=== PATIENT | male | born 1970 | race Caucasian/White ===

== ENCOUNTER → 2018-05-31 08:41 | Outpatient (CLI) | payer OTHER ==
[2015-03-18 12:58] VITALS: BMI 25.8
[~2018-05-31 08:41] MED LIST: ANUSOL-HC25 MG RC; DULCOLAX10 MG/SUPP RC; FLAGYL500 MG PO; HYDROCODON-ACE1 EAC7 PO; INVANZ 1 GM/NS 11 G1 IV; MIRALAX17 GM PO; NORCO-10 PO; PENTASA500 MG PO
[2018-05-31 10:06] LABS: ALBUMIN 3.3 g/dL (3.4-5.0); ALKALINE PHOSPHATASE 69 U/L (46-116); ALT (SGPT) 16 U/L (10-68); BILIRUBIN - TOTAL 0.24 mg/dL (0.2-1.3); CALC OSMOLALITY 283 mosm/kg (275-300); CALCIUM 9.1 mg/dL (8.5-10.1); CARBON DIOXIDE 33.7 mmol/L (21.0-32.0); CHLORIDE - SERUM 104 mmol/L (98-107); CREATININE - SERUM 0.9 mg/dL (0.6-1.3); GLUCOSE 108 mg/dL (74-106); POTASSIUM - SERUM 4.3 mmol/L (3.5-5.1); PROTEIN - SERUM 7.2 g/dL (6.4-8.2); SODIUM 143 mmol/L (136-145); UREA NITROGEN 8 mg/dL (7-18); eGFR NON AFRICAN AMERICAN > 90 mL/min (90-120)
[2018-05-31 10:31] LABS: ERYTHROCYTE SEDIMENTATION RATE 25 mm/hr (0-15)
[2018-05-31 10:34] LABS: BASOPHILS 0.1 % (0-2); EOSINOPHILS 0.4 % (0-7); HEMATOCRIT 42.6 % (42.0-54.0); HEMOGLOBIN 13.9 g/dL (13.5-17.5); IMMATURE GRANULOCYTES 0.3 % (0-5); LYMPHOCYTES 11.3 % (15-50); MCH 28.1 pg (26.0-34.0); MCHC 32.6 g/dL (31.0-37.0); MCV 86.2 fL (80.0-100.0); MEAN PLATELET VOLUME 9.9 fL (7.4-10.4); MONOCYTES 8.7 % (2-11); NEUTROPHILS 79.2 % (40-80); RBC 4.94 10x6/uL (4.20-6.10); RDW 14.2 % (11.5-14.5)
[2018-05-31 10:46] LABS: PLATELET COUNT 251 10x3/uL (130-400)
== END | disposition home or self-care (01) ==
LOC: D.CT 08:41
PROVIDERS: Internal Medicine Gastroenterology
DX: R19.4 Change in bowel habit (principal); R10.32 Left lower quadrant pain; R10.31 Right lower quadrant pain; R63.4 Abnormal weight loss; K50.90 Crohn's disease, unspecified, without complications

== ENCOUNTER → 2018-06-20 07:54 | Outpatient (CLI) | payer OTHER ==
[2015-03-18 12:58] VITALS: BMI 25.8
== END | disposition home or self-care (01) ==
LOC: D.RAD 07:54
DX: K50.90 Crohn's disease, unspecified, without complications (principal); R10.9 Unspecified abdominal pain; R59.9 Enlarged lymph nodes, unspecified; R93.8 Abnormal findings on diagnostic imaging of other specified body structures

== ENCOUNTER → 2018-07-08 08:00 | Outpatient (CLI) | payer OTHER ==
[2015-03-18 12:58] VITALS: BMI 25.8
== END | disposition home or self-care (01) ==
LOC: D.CT 08:00
DX: R10.9 Unspecified abdominal pain (principal); R59.9 Enlarged lymph nodes, unspecified; K50.90 Crohn's disease, unspecified, without complications

== ENCOUNTER 2018-07-25 07:11 | Inpatient (IN) | payer OTHER ==
[2018-07-24 13:54] LABS: BASOPHILS 0.2 % (0-2); EOSINOPHILS 0.4 % (0-7); HEMATOCRIT 40.5 % (42.0-54.0); HEMOGLOBIN 13.2 g/dL (13.5-17.5); IMMATURE GRANULOCYTES 0.2 % (0-5); LYMPHOCYTES 18.1 % (15-50); MCH 28.8 pg (26.0-34.0); MCHC 32.6 g/dL (31.0-37.0); MCV 88.4 fL (80.0-100.0); MEAN PLATELET VOLUME 9.3 fL (7.4-10.4); MONOCYTES 9.2 % (2-11); NEUTROPHILS 71.9 % (40-80); PLATELET COUNT 210 10x3/uL (130-400); RBC 4.58 10x6/uL (4.20-6.10); RDW 13.8 % (11.5-14.5)
[2018-07-24 14:10] LABS: CALC OSMOLALITY 282 mosm/kg (275-300); CALCIUM 8.6 mg/dL (8.5-10.1); CARBON DIOXIDE 32.6 mmol/L (21.0-32.0); CHLORIDE - SERUM 103 mmol/L (98-107); GLUCOSE 103 mg/dL (74-106); SODIUM 143 mmol/L (136-145); UREA NITROGEN 8 mg/dL (7-18); eGFR NON AFRICAN AMERICAN 85 mL/min (90-120)
[~2018-07-25] VITALS: Ht 182.9 cm; Wt 78.0 kg
--- NOTE | ~2018-07-25 | OP ---
PATIENT NAME: SHREE MESSER MEDICAL RECORD: [id number] :74 LOCATION:D.MS [id number] ADMISSION DATE:07/25/18 SURGEON: DAVY ODELL MD DATE OF OPERATION: 07/25/2018 PREOPERATIVE DIAGNOSES: 1. Crohn disease. 2. Partial small-bowel obstruction. POSTOPERATIVE DIAGNOSES: 1. Crohn disease. 2. Partial small-bowel obstruction. PROCEDURE: 1. Exploratory laparotomy. 2. Lysis of adhesions. 3. Small bowel resection times 2. SURGEON: Davy Odell MD AGRIBUSINESS PROFESSOR: Amy Franco APRN REPORT OF PROCEDURE: The patient's abdomen was prepped and draped in sterile fashion. A cutdown was made in the midline around the umbilicus. Electrocautery was used to dissect through the subcutaneous tissue into the abdominal cavity. Once we entered, the patient was noted to have markedly distended small bowel consistent with a partial small-bowel obstruction. There was a lot of inflammatory adhesions present in the mesentery and to some of the distal small bowel. There was no sign of any purulence or abscess cavities. The patient's small bowel was tediously dissected free from the surrounding tissues. There was noted be a lot of inflammatory changes and also appeared to be one area of possible fistulous tract coming from a portion of the mid ileum. As we came through the fistulous tract, we did enter the small bowel lumen. This area was marked and held for repair later. The injury to the bowel was on the mesenteric side. As we got down towards the right lower quadrant, we noted there was some significant inflammatory adhesions present to the posterior abdominal wall and this was causing stricturing of the bowel. We eventually were able to free up this section of bowel. The bowel distal to this was inflamed, but was not dilated. We eventually performed a resection of this section of dilated swollen bowel, which appeared to be fairly significantly strictured. The bowel was transected with the 75-blue load JANET stapler. The mesentery was taken down with sequential clamp and tie technique. We then made enterotomies on the afferent and efferent limbs of the small bowel and then performed a ggyu-vi-wkqh anastomosis with a 75 blue load JANET stapler. The enterotomies were stapled off using a 60 blue load TA stapler and then we oversewed all the suture lines using Lemberted 3-0 silks. The previous enterotomy site was inspected and I did not feel that I could safely just perform a local repair, so we resected approximately 2 cm length section of small bowel around this spot using again a 75 blue load JANET stapler and taking down the mesentery with sequential clamp and tie technique with 3-0 silks. We made enterotomies on the 2 limbs of bowel and performed a ndlr-ha-muvz anastomosis with the 75 blue load JANET stapler. The enterotomies were closed with a 60 blue load TA stapler and again we oversewed all staple lines using Lemberted 3-0 silks. There was no sign of any enteric spillage during this procedure. The remainder of the colon and small bowel appeared to be normal OPERATIVE REPORT [id number] SHREE MESSER except for the areas, which were mildly inflamed. There were no signs of any other strictures or lesions present. There was a firm nodule at the base of the mesentery near the main stricture. I felt this was likely a large lymph node. I went ahead and resected this piece of tissue, which appeared more fatty than anything in nature and this was sent off for permanent specimen. The abdomen was then irrigated out thoroughly with normal saline and care was taken to assure there was no sign of any surgical bleeding. At this point, the midline fascia was closed with running #1 loop PDS times 2 and the skin was closed with cory. COMPLICATIONS: None. CONDITION: Stable. ANESTHESIA: General endotracheal. BLOOD LOSS: 400 mL. TRANSINT:[id number] Voice Confirmation ID: [id number] DOCUMENT ID: [id number] DAVY ODELL MD at 1714 CC: RIAN EDMOND MD and PRIYA ACO MD [id number] DICTATION DATE: 07/25/18 1212 CONSERVATION SCIENCE OFFICER: 07/25/18 1221 DIS IN 07/31/18 [place] [id number] [place] [id number]
[~2018-07-25 07:11] MED LIST changes: -NORCO-10 PO
[2018-07-25 07:47] VITALS: BP 124/84; BMI 23.5
[2018-07-25 13:33] VITALS: BP 121/77
[2018-07-25 14:12] VITALS: BP 121/77; BMI 23.3
[2018-07-25 16:24] VITALS: BP 121/71
[2018-07-25 20:00] VITALS: BP 131/76
[2018-07-26] VITALS (8 sets, daily range): BP systolic 101–134; BP diastolic 70–85; Ht 182.9 cm; Wt 78.0 kg
[2018-07-26 05:22] LABS: BASOPHILS 0.1 % (0-2); EOSINOPHILS 0 % (0-7); HEMATOCRIT 38.5 % (42.0-54.0); HEMOGLOBIN 12.5 g/dL (13.5-17.5); IMMATURE GRANULOCYTES 0.3 % (0-5); LYMPHOCYTES 4.3 % (15-50); MCH 28.6 pg (26.0-34.0); MCHC 32.5 g/dL (31.0-37.0); MCV 88.1 fL (80.0-100.0); MEAN PLATELET VOLUME 9.7 fL (7.4-10.4); MONOCYTES 9.3 % (2-11); RBC 4.37 10x6/uL (4.20-6.10); RDW 13.9 % (11.5-14.5)
[2018-07-26 05:30] LABS: PLATELET COUNT 255 10x3/uL (130-400); WBC 19.4 10x3/uL (4.8-10.8)
[2018-07-26 05:55] LABS: CALCIUM 8.1 mg/dL (8.5-10.1); CARBON DIOXIDE 28.5 mmol/L (21.0-32.0); CHLORIDE - SERUM 106 mmol/L (98-107); CREATININE - SERUM 1.1 mg/dL (0.6-1.3); GLUCOSE 141 mg/dL (74-106); SODIUM 141 mmol/L (136-145); eGFR NON AFRICAN AMERICAN 76 mL/min (90-120)
[2018-07-26 05:58] LABS: CALC OSMOLALITY 282 mosm/kg (275-300); UREA NITROGEN 13 mg/dL (7-18)
[2018-07-27] VITALS: BP 108/79
[2018-07-27 04:00] VITALS: BP 112/69
[2018-07-27 06:36] LABS: BASOPHILS 0.1 % (0-2); EOSINOPHILS 0 % (0-7); HEMATOCRIT 31.1 % (42.0-54.0); HEMOGLOBIN 10.1 g/dL (13.5-17.5); IMMATURE GRANULOCYTES 0.2 % (0-5); LYMPHOCYTES 3.2 % (15-50); MCH 28.6 pg (26.0-34.0); MCHC 32.5 g/dL (31.0-37.0); MCV 88.1 fL (80.0-100.0); MEAN PLATELET VOLUME 9.9 fL (7.4-10.4); MONOCYTES 10.2 % (2-11); NEUTROPHILS 86.3 % (40-80); PLATELET COUNT 235 10x3/uL (130-400); RBC 3.53 10x6/uL (4.20-6.10); RDW 13.9 % (11.5-14.5)
[2018-07-27 06:41] LABS: WBC 10.8 10x3/uL (4.8-10.8)
[2018-07-27 07:08] LABS: ALKALINE PHOSPHATASE 64 U/L (46-116); ALT (SGPT) 14 U/L (10-68); BILIRUBIN - TOTAL 0.39 mg/dL (0.2-1.3); CALC OSMOLALITY 279 mosm/kg (275-300); CALCIUM 8.1 mg/dL (8.5-10.1); CARBON DIOXIDE 24.7 mmol/L (21.0-32.0); CHLORIDE - SERUM 106 mmol/L (98-107); GLUCOSE 143 mg/dL (74-106); PHOSPHOROUS 2.1 mg/dL (2.5-4.9); POTASSIUM - SERUM 4.4 mmol/L (3.5-5.1); PROTEIN - SERUM 5.5 g/dL (6.4-8.2); SODIUM 138 mmol/L (136-145); TROPONIN-I < 0.017 ng/mL (0.000-0.060); eGFR NON AFRICAN AMERICAN 85 mL/min (90-120)
[2018-07-27 07:15] LABS: UREA NITROGEN 18 mg/dL (7-18)
[2018-07-27 10:26] VITALS: BP 122/78
[2018-07-27 12:31] VITALS: BP 102/77
[2018-07-27 16:11] VITALS: BP 116/77
[2018-07-27 20:00] VITALS: BP 123/72
[2018-07-27 23:51] LABS: APPEARANCE CLEAR (CLEAR); BILIRUBIN NEGATIVE (NEGATIVE); COLOR YELLOW (YELLOW); GLUCOSE NEGATIVE (NEGATIVE); KETONE SMALL mg/dL (NEGATIVE); NITRITE NEGATIVE (NEGATIVE); PROTEIN NEGATIVE (NEGATIVE); SPECIFIC GRAVITY 1.025 (1.005-1.020); UROBILINOGEN NORMAL (NORMAL)
[2018-07-28] VITALS: BP 132/78
[2018-07-28 04:00] VITALS: BP 127/82
[2018-07-28 05:19] LABS: BASOPHILS 0.1 % (0-2); EOSINOPHILS 0.2 % (0-7); IMMATURE GRANULOCYTES 0.3 % (0-5); LYMPHOCYTES 4.7 % (15-50); MCH 27.9 pg (26.0-34.0); MCHC 31.3 g/dL (31.0-37.0); MCV 89.3 fL (80.0-100.0); MEAN PLATELET VOLUME 9.6 fL (7.4-10.4); MONOCYTES 10.5 % (2-11); NEUTROPHILS 84.2 % (40-80); PLATELET COUNT 219 10x3/uL (130-400); WBC 8.7 10x3/uL (4.8-10.8)
[2018-07-28 05:33] LABS: ALBUMIN 2.1 g/dL (3.4-5.0); ALKALINE PHOSPHATASE 61 U/L (46-116); BILIRUBIN - TOTAL 0.24 mg/dL (0.2-1.3); CALCIUM 8.2 mg/dL (8.5-10.1); CARBON DIOXIDE 25.3 mmol/L (21.0-32.0); CHLORIDE - SERUM 106 mmol/L (98-107); CREATININE - SERUM 1.1 mg/dL (0.6-1.3); GLUCOSE 110 mg/dL (74-106); MAGNESIUM - SERUM 2.2 mg/dL (1.8-2.4); POTASSIUM - SERUM 4.8 mmol/L (3.5-5.1); SODIUM 141 mmol/L (136-145); eGFR NON AFRICAN AMERICAN 76 mL/min (90-120)
[2018-07-28 05:35] LABS: HEMATOCRIT 24.3 % (42.0-54.0); HEMOGLOBIN 7.6 g/dL (13.5-17.5); RBC 2.72 10x6/uL (4.20-6.10)
[2018-07-28 05:38] LABS: ALT (SGPT) 18 U/L (10-68); CALC OSMOLALITY 285 mosm/kg (275-300); PHOSPHOROUS 3.7 mg/dL (2.5-4.9); UREA NITROGEN 25 mg/dL (7-18)
[2018-07-28 08:28] VITALS: BP 112/70
[2018-07-28 11:31] VITALS: BP 114/60
[2018-07-28 16:29] VITALS: BP 134/80
[2018-07-28 21:07] VITALS: BP 113/72
[2018-07-29 05:09] VITALS: BP 124/74
[2018-07-29 08:45] VITALS: BP 107/68
[2018-07-29 10:16] LABS: BASOPHILS 0.2 % (0-2); EOSINOPHILS 0.5 % (0-7); HEMATOCRIT 26.6 % (42.0-54.0); HEMOGLOBIN 8.6 g/dL (13.5-17.5); IMMATURE GRANULOCYTES 0.3 % (0-5); LYMPHOCYTES 3.1 % (15-50); MCH 28.6 pg (26.0-34.0); MCHC 32.3 g/dL (31.0-37.0); MCV 88.4 fL (80.0-100.0); MEAN PLATELET VOLUME 8.7 fL (7.4-10.4); MONOCYTES 11.7 % (2-11); NEUTROPHILS 84.2 % (40-80); RBC 3.01 10x6/uL (4.20-6.10); RDW 13.7 % (11.5-14.5)
[2018-07-29 10:18] LABS: PLATELET COUNT 167 10x3/uL (130-400); WBC 6.1 10x3/uL (4.8-10.8)
[2018-07-29 10:31] LABS: CALC OSMOLALITY 280 mosm/kg (275-300); CALCIUM 8.4 mg/dL (8.5-10.1); CARBON DIOXIDE 24.9 mmol/L (21.0-32.0); CHLORIDE - SERUM 103 mmol/L (98-107); CREATININE - SERUM 0.9 mg/dL (0.6-1.3); GLUCOSE 83 mg/dL (74-106); POTASSIUM - SERUM 4.7 mmol/L (3.5-5.1); SODIUM 139 mmol/L (136-145); UREA NITROGEN 23 mg/dL (7-18); eGFR NON AFRICAN AMERICAN > 90 mL/min (90-120)
[2018-07-29 13:21] VITALS: BP 121/64
[2018-07-29 16:41] VITALS: BP 110/63
[2018-07-29 21:01] VITALS: BP 108/65
[2018-07-30 04:57] VITALS: BP 122/64
[2018-07-30 06:26] LABS: BASOPHILS 0.2 % (0-2); EOSINOPHILS 0.6 % (0-7); HEMATOCRIT 26.1 % (42.0-54.0); HEMOGLOBIN 8.4 g/dL (13.5-17.5); IMMATURE GRANULOCYTES 0.3 % (0-5); MCH 28.3 pg (26.0-34.0); MCHC 32.2 g/dL (31.0-37.0); MCV 87.9 fL (80.0-100.0); MEAN PLATELET VOLUME 9.7 fL (7.4-10.4); MONOCYTES 10.8 % (2-11); NEUTROPHILS 83.1 % (40-80); PLATELET COUNT 173 10x3/uL (130-400); RBC 2.97 10x6/uL (4.20-6.10); RDW 13.9 % (11.5-14.5); WBC 6.6 10x3/uL (4.8-10.8)
[2018-07-30 06:42] LABS: CALCIUM 7.5 mg/dL (8.5-10.1); CARBON DIOXIDE 28.8 mmol/L (21.0-32.0); CHLORIDE - SERUM 103 mmol/L (98-107); CREATININE - SERUM 0.8 mg/dL (0.6-1.3); GLUCOSE 95 mg/dL (74-106); SODIUM 137 mmol/L (136-145); eGFR NON AFRICAN AMERICAN > 90 mL/min (90-120)
[2018-07-30 06:43] LABS: CALC OSMOLALITY 274 mosm/kg (275-300); POTASSIUM - SERUM 3.3 mmol/L (3.5-5.1); UREA NITROGEN 14 mg/dL (7-18)
[2018-07-30 09:19] VITALS: BP 113/71
[2018-07-30 13:27] VITALS: BP 107/72
[2018-07-30 17:44] VITALS: BP 122/79
[2018-07-30 21:10] VITALS: BP 117/82
[2018-07-31 05:07] VITALS: BP 121/75
[2018-07-31 08:48] VITALS: BP 117/73
[2018-07-31] MEDS ORDERED: NORCO-10 PO (08:50)
== END 2018-07-31 10:47 | disposition home or self-care (01) | DRG 330 ==
LOC: D.MS 07:11 → D.SDCHOLD 07:11 → D.MS 13:33
PROVIDERS: Anesthesiology; Surgery
PROC: 07BB0ZX Excision of Mesenteric Lymphatic, Open Approach, Diagnostic (ICD-10-PCS; 2018-07-25)
PROC: 0DB80ZZ Excision of Small Intestine, Open Approach (ICD-10-PCS; principal; 2018-07-25 09:15)
DX: K50.012 Crohn's disease of small intestine with intestinal obstruction (principal); K66.0 Peritoneal adhesions (postprocedural) (postinfection); R00.0 Tachycardia, unspecified

== ENCOUNTER → 2018-08-28 20:54 | Outpatient (CLI) | payer OTHER ==
[2018-07-26 12:45] VITALS: BMI 23.3
[~2018-08-28 20:54] MED LIST changes: +NORCO-10 PO
== END | disposition home or self-care (01) ==
LOC: D.LABREF 20:54
DX: L02.211 Cutaneous abscess of abdominal wall (principal); Z98.890 Other specified postprocedural states

== ENCOUNTER 2018-08-29 09:12 | Inpatient (IN) | payer OTHER ==
[~2018-08-29] VITALS: Ht 182.9 cm; Wt 72.6 kg
--- NOTE | ~2018-08-29 | MORECARE ---
CASE MANAGEMENT DISCHARGE SUMMARY PATIENT: SHREE MESSER UNIT: [id number] ADM DATE: 08/29/18 AGE: 48 : 74 SEX: M ROOM/BED: D.2216 AUTHOR: ELIZABETH KAPOOR PHYSICIAN: REFERRING PHYSICIAN: AUBREE ODELL MD DATE OF SERVICE: 09/02/18 Discharge Plan Patient Name: SHREE MESSER Facility: [facility]:[place] : 1970 Planned Disposition: Home with Home Health Anticipated Discharge Date: Discharge Date: Expected LOS: Initial Reviewer: [email or web address] Initial Review Date: 08/29/2018 Generated: 09/02/18 10:49 am Comments DCP- Discharge Planning Updated by [email or web address]: Tania Gupta on 09/02/18 8:[address] Patient Name: SHREE MESSER Admission Status: Elective Accout number: [id number] Admission Date: 08-29-2018 : 1970 Admission Diagnosis:CROHN'S DISEASE, UNSPECIFIED, WITH ABSCESS Attending: AUBREE ODELL Current LOS: 4 Anticipated DC Date: Planned Disposition: Home with Home Health Primary Insurance: [employer]IG[employer] PPO Discharge Planning Comments: CM met with patient to assess discharge planning needs. Patient lives with his brother where he is independent with his care. His mother will be the one to drive him home today. He will need , SELIN with [facility]. Referral sent to [facility], I spoke with Annalisa. He stated his home is safe to return. He denies any DME. CM will continue to follow and assist with DC planning as needed Aircraft Design Engineer: Tania Gupta DCPIA - Discharge Planning Initial Assessment Updated by [email or web address]: Tania Gupta on 09/02/18 9:44 am * Is the patient Alert and Oriented? Yes * How many steps to enter\exit or inside your home? * PCP [facility] * [facility] * Preadmission Environment Home with Family * ADLs Independent * Equipment None * List name and contact numbers for known caregivers / representatives who currently or will assist patient after discharge: Britney Calix [phone] * Verbal permission to speak to the caregivers and representatives has been obtained from the patient. Yes * Community resources currently utilized None * Additional services required to return to the preadmission environment? Yes * Can the patient safely return to the preadmission environment? Yes * Has this patient been hospitalized within the prior 30 days at any hospital? No External Providers [facility] Next Contact Date: Service Request Date: Service Type: Resolution: Reviewer: Comments: Patient Name: SHREE MESSER Page 02731 at 0949 All edits/amendments must be made on the electronic document DICTATION DATE: 09/02/18947 DIRECTOR OF RADIOLOGY: JAIRO 09/02/18947 RPT#: [id number] DC DATE: STATUS: ADM IN [facility] [address] [place] [address] END OF REPORT
--- NOTE | ~2018-08-29 | MORECARE ---
CASE MANAGEMENT DISCHARGE SUMMARY PATIENT: SHREE MESSER UNIT: [id number] ADM DATE: 08/29/18 AGE: 48 : 74 SEX: M ROOM/BED: D.2216 AUTHOR: ELIZABETH KAPOOR PHYSICIAN: REFERRING PHYSICIAN: AUBREE ODELL MD DATE OF SERVICE: 09/02/18 Discharge Plan Patient Name: SHREE MESSER Facility: [facility]:[place] : 1970 Planned Disposition: Home with Home Health Anticipated Discharge Date: Discharge Date: Expected LOS: Initial Reviewer: [email or web address] Initial Review Date: 08/29/2018 Generated: 09/02/18 12:41 pm Comments DCP- Discharge Planning Updated by [email or web address]: Tania Gupta on 09/02/18 10:[address] RECEIVED A CALL FROM [facility] SAYING THAT THEY DO NOT ACCEPT PATIENT'S INSURANCE. REFERRAL S[facility] TO [facility] WHO [facility] ACCEPT CIGNA. DCP- Discharge Planning Updated by [email or web address]: Tania Gupta on 09/02/18 8:[address] Patient Name: SHREE MESSER Admission Status: Elective Accout number: [id number] Admission Date: 08-29-2018 : 1970 Admission Diagnosis:CROHN'S DISEASE, UNSPECIFIED, WITH ABSCESS Attending: AUBREE ODELL Current LOS: 4 Anticipated DC Date: Planned Disposition: Home with Home Health Primary Insurance: CIGNA PPO Discharge Planning Comments: CM met with patient to assess discharge planning needs. Patient lives with his brother where he is independent with his care. His mother will be the one to drive him home today. He will need , SELIN with [facility]. Referral sent to [facility], I spoke with Annalisa. He stated his home is safe to return. He denies any DME. CM will continue to follow and assist with DC planning as needed Film Cutter: Tania Gupta DCPIA - Discharge Planning Initial Assessment Updated by [email or web address]: Tania Gupta on 09/02/18 9:44 am * Is the patient Alert and Oriented? Yes * How many steps to enter\exit or inside your home? * PCP [facility] * [facility] * Preadmission Environment Home with Family * ADLs Independent * Equipment None * List name and contact numbers for known caregivers / representatives who currently or will assist patient after discharge: Britney Calix [phone] * Verbal permission to speak to the caregivers and representatives has been obtained from the patient. Yes * Community resources currently utilized None * Additional services required to return to the preadmission environment? Yes * Can the patient safely return to the preadmission environment? Yes * Has this patient been hospitalized within the prior 30 days at any hospital? No External Providers External Provider: [facility] Next Contact Date: Service Request Date: Service Type: Resolution: Reviewer: Comments: Last DP export: 09/02/18 8:49 Patient Name: SHREE MESSER Page 49235 at 1141 All edits/amendments must be made on the electronic document DICTATION DATE: 09/02/18 114 LEAD ADVISOR: JAIRO 09/02/18 1140 RPT#: [id number] DC DATE: STATUS: ADM IN [facility] [address] [place] [address] END OF REPORT
--- NOTE | ~2018-08-29 | MORECARE ---
CASE MANAGEMENT DISCHARGE SUMMARY PATIENT: SHREE MESSER UNIT: [id number] ADM DATE: 08/29/18 AGE: 48 : 74 SEX: M ROOM/BED: D.2216 AUTHOR: ELIZABETH KAPOOR PHYSICIAN: REFERRING PHYSICIAN: AUBREE ODELL MD DATE OF SERVICE: 09/02/18 Discharge Plan Patient Name: SHREE MESSER Facility: [facility]:[place] : 1970 Planned Disposition: Home with Home Health Anticipated Discharge Date: Discharge Date: 09/02/2018 Expected LOS: Initial Reviewer: [email or web address] Initial Review Date: 08/29/2018 Generated: 09/02/18 4:37 pm Comments DCP- Discharge Planning Updated by [email or web address]: Tania Gupta on 09/02/18 2:[address] [facility] WILL ACCEPT THE PATIENT AND BE ABLE TO ADMIT HIM TOMORROW. I SPOKE WITH CAPO AT [facility]. CALLED PATIENT TO LET HIM KNOW THE CHANGE OF HOME HEALTH AGAIN DCP- Discharge Planning Updated by [email or web address]: Tania Gupta on 09/02/18 11:[address] [facility]S [facility]URANCE AND HE IS OUT OF NETWORK WITH [facility]. HE WILL HAVE TO PAY 50% BECAUSE HE IS OUT OF NETWORK, CALLED [facility] SPOKE WITH CAPO, THEY WILL RUN HIS INSURANCE TO SEE IF HE IS IN NETWORK FOR THEM. SHE WILL CALL ME BACK DCP- Discharge Planning Updated by [email or web address]: Tania Gupta on 09/02/18 10:[address] CALLED PATIENT TO INFORM HIM OF THE CHANGE BECAUSE OF INSURANCE. HE IS AGREEABLE TO [facility]. I GAVE HIM THE OFFICE NUMBER. DCP- Discharge Planning Updated by [email or web address]: Tania Gupta on 09/02/18 10:[address] RECEIVED A CALL FROM [facility] SAYING THAT THEY DO NOT ACCEPT PATIENT'S INSURANCE. REFERRAL SENT TO [facility] WHO DOES ACCEPT CIGNA. DCP- Discharge Planning Updated by [email or web address]: Tania Gupta on 09/02/18 8:[address] Patient Name: SHREE MESSER Admission Status: Elective Accout number: [id number] Admission Date: 08-29-2018 : 1970 Admission Diagnosis:CROHN'S DISEASE, UNSPECIFIED, WITH ABSCESS Attending: AUBREE ODELL Current LOS: 4 Anticipated DC Date: Planned Disposition: Home with Home Health Primary Insurance: CIGNA PPO Discharge Planning Comments: CM met with patient to assess discharge planning needs. Patient lives with his brother where he is independent with his care. His mother will be the one to drive him home today. He will need , SELIN with [facility]. Referral sent to [facility], I spoke with Annalisa. He stated his home is safe to return. He denies any DME. CM will continue to follow and assist with DC planning as needed Magnetic Observer: Tania Gupta DCPIA - Discharge Planning Initial Assessment Updated by [email or web address]: Tania Gupta on 09/02/18 9:44 am * Is the patient Alert and Oriented? Yes * How many steps to enter\exit or inside your home? * PCP [facility]ole * [facility]acy [facility] * Preadmission Environment Home with Family * ADLs Independent * Equipment None * List name and contact numbers for known caregivers / representatives who currently or will assist patient after discharge: Britneyalyse Calix [phone] * Verbal permission to speak to the caregivers and representatives has been obtained from the patient. Yes * Community resources currently utilized None * Additional services required to return to the preadmission environment? Yes * Can the patient safely return to the preadmission environment? Yes * Has this patient been hospitalized within the prior 30 days at any hospital? No Last DP export: 09/02/18 11:19 Patient Name: SHREE MESSER Page 30900 at 1537 All edits/amendments must be made on the electronic document DICTATION DATE: 09/02/18 1536 DIRECTOR CARDIAC: JAIRO 09/02/181535 RPT#: [id number] DC DATE:09/02/18 STATUS: DIS IN [facility] [address] [place] [address] END OF REPORT
--- NOTE | ~2018-08-29 | MORECARE ---
CASE MANAGEMENT DISCHARGE SUMMARY PATIENT: SHREE MESSER UNIT: [id number] ADM DATE: 08/29/18 AGE: 48 : 74 SEX: M ROOM/BED: D.2216 AUTHOR: ELIZABETH KAPOOR PHYSICIAN: REFERRING PHYSICIAN: AUBREE ODELL MD DATE OF SERVICE: 09/02/18 Discharge Plan Patient Name: SHREE MESSER Facility: [facility]:[place] : 1970 Planned Disposition: Home with Home Health Anticipated Discharge Date: Discharge Date: 09/02/2018 Expected LOS: Initial Reviewer: [email or web address] Initial Review Date: 08/29/2018 Generated: 09/02/18 1:19 pm Comments DCP- Discharge Planning Updated by [email or web address]: Tania Gupta on 09/02/18 11:[address] [facility]S [facility]URANCE AND HE IS OUT OF NETWORK WITH [facility]. HE WILL HAVE TO PAY 50% BECAUSE HE IS OUT OF NETWORK, CALLED [facility] SPOKE WITH CAPO, THEY WILL RUN HIS INSURANCE TO SEE IF HE IS IN NETWORK FOR THEM. SHE WILL CALL ME BACK DCP- Discharge Planning Updated by [email or web address]: Tania Gupta on 09/02/18 10:[address] CALLED PATIENT TO INFORM HIM OF THE CHANGE BECAUSE OF INSURANCE. HE IS AGREEABLE TO [facility]. I GAVE HIM THE OFFICE NUMBER. DCP- Discharge Planning Updated by [email or web address]: Tania Gupta on 09/02/18 10:[address] RECEIVED A CALL FROM [facility] SAYING THAT THEY DO NOT ACCEPT PATIENT'S INSURANCE. REFERRAL SENT TO [facility] WHO DOES ACCEPT CIGNA. DCP- Discharge Planning Updated by [email or web address]: Tania Gupta on 09/02/18 8:[address] Patient Name: SHREE MESSER Admission Status: Elective Accout number: [id number] Admission Date: 08-29-2018 : 1970 Admission Diagnosis:CROHN'S DISEASE, UNSPECIFIED, WITH ABSCESS Attending: AUBREE ODELL Current LOS: 4 Anticipated DC Date: Planned Disposition: Home with Home Health Primary Insurance: CIGNA PPO Discharge Planning Comments: CM met with patient to assess discharge planning needs. Patient lives with his brother where he is independent with his care. His mother will be the one to drive him home today. He will need , SELIN with [facility]. Referral sent to [facility], I spoke with Annalisa. He stated his home is safe to return. He denies any DME. CM will continue to follow and assist with DC planning as needed City Controller: Tania Gupta DCPIA - Discharge Planning Initial Assessment Updated by [email or web address]: Tania Gupta on 09/02/18 9:44 am * Is the patient Alert and Oriented? Yes * How many steps to enter\exit or inside your home? * PCP [facility] * [facility] * Preadmission Environment Home with Family * ADLs Independent * Equipment None * List name and contact numbers for known caregivers / representatives who currently or will assist patient after discharge: Britneyalyse Calix [phone] * Verbal permission to speak to the caregivers and representatives has been obtained from the patient. Yes * Community resources currently utilized None * Additional services required to return to the preadmission environment? Yes * Can the patient safely return to the preadmission environment? Yes * Has this patient been hospitalized within the prior 30 days at any hospital? No External Providers External Provider: [facility] Next Contact Date: Service Request Date: Service Type: Resolution: Reviewer: Comments: Last DP export: 09/02/18 10:47 Patient Name: SHREE MESSER Page 20813 at 1220 All edits/amendments must be made on the electronic document DICTATION DATE: 09/02/181218 CLOTH TRIMMER HAND: JAIRO 09/02/181218 RPT#: [id number] DC DATE:09/02/18 STATUS: DIS IN [facility] [address] [place] [address] END OF REPORT
--- NOTE | ~2018-08-29 | MORECARE ---
CASE MANAGEMENT DISCHARGE SUMMARY PATIENT: SHREE MESSER UNIT: [id number] ADM DATE: 08/29/18 AGE: 48 : 74 SEX: M ROOM/BED: D.2216 AUTHOR: ELIZABETH KAPOOR PHYSICIAN: REFERRING PHYSICIAN: AUBREE ODELL MD DATE OF SERVICE: 09/09/18 Discharge Plan Patient Name: SHREE MESSER Facility: [facility]:[place] : 1970 Planned Disposition: Home with Home Health Anticipated Discharge Date: Discharge Date: 09/02/2018 Expected LOS: 0 Initial Reviewer: [email or web address] Initial Review Date: 08/29/2018 Generated: 09/09/18 11:11 am Comments DCP- Discharge Planning Updated by [email or web address]: Tania Gupta on 09/02/18 2:[address] [facility] WILL ACCEPT THE PATIENT AND BE ABLE TO ADMIT HIM TOMORROW. I SPOKE WITH CAPO AT [facility]. CALLED PATIENT TO LET HIM KNOW THE CHANGE OF HOME HEALTH AGAIN DCP- Discharge Planning Updated by [email or web address]: Tania Gupta on 09/02/18 11:[address] [facility]URANCE AND HE IS OUT OF NETWORK WITH [facility]. HE WILL HAVE TO PAY 50% BECAUSE HE IS OUT OF NETWORK, CALLED [facility] SPOKE WITH [facility], THEY WILL RUN HIS INSURANCE TO SEE IF HE IS IN NETWORK FOR THEM. SHE WILL CALL ME BACK DCP- Discharge Planning Updated by [email or web address]: Tania Gupta on 09/02/18 10:[address] CALLED PATIENT TO INFORM HIM OF THE CHANGE BECAUSE OF INSURANCE. HE IS AGREEABLE TO [facility]. I GAVE HIM THE OFFICE NUMBER. DCP- Discharge Planning Updated by [email or web address]: Tania Gupta on 09/02/18 10:[address] RECEIVED A CALL FROM [facility] SAYING THAT THEY DO NOT ACCEPT PATIENT'S INSURANCE. REFERRAL SENT TO [facility] WHO DOES ACCEPT CIGNA. DCP- Discharge Planning Updated by [email or web address]: Tania Gupta on 09/02/18 8:[address] Patient Name: SHREE MESSER Admission Status: Elective Accout number: [id number] Admission Date: 08-29-2018 : 1970 Admission Diagnosis:CROHN'S DISEASE, UNSPECIFIED, WITH ABSCESS Attending: AUBREE ODELL Current LOS: 4 Anticipated DC Date: Planned Disposition: Home with Home Health Primary Insurance: CIGNA PPO Discharge Planning Comments: CM met with patient to assess discharge planning needs. Patient lives with his brother where he is independent with his care. His mother will be the one to drive him home today. He will need , SELIN with [facility]. Referral sent to [facility], I spoke with Annalisa. He stated his home is safe to return. He denies any DME. CM will continue to follow and assist with DC planning as needed Certified Hyperbaric Technologist: Tania Gupta DCPIA - Discharge Planning Initial Assessment Updated by [email or web address]: Tania Gupta on 09/02/18 9:44 am * Is the patient Alert and Oriented? Yes * How many steps to enter\exit or inside your home? * PCP [facility] * [facility] * Preadmission Environment Home with Family * ADLs Independent * Equipment None * List name and contact numbers for known caregivers / representatives who currently or will assist patient after discharge: Britney Calix [phone] * Verbal permission to speak to the caregivers and representatives has been obtained from the patient. Yes * Community resources currently utilized None * Additional services required to return to the preadmission environment? Yes * Can the patient safely return to the preadmission environment? Yes * Has this patient been hospitalized within the prior 30 days at any hospital? No Last DP export: 09/02/18 2:37 Patient Name: SHREE MESSER Page 06791 at 1011 All edits/amendments must be made on the electronic document DICTATION DATE: 09/09/18 1010 SENIOR CONTROLS TECHNICIAN: JAIRO 09/09/18 1010 RPT#: [id number] DC DATE:09/02/18 STATUS: DIS IN [facility] [address] [place] [address] END OF REPORT
--- NOTE | ~2018-08-29 | MORECARE ---
CASE MANAGEMENT DISCHARGE SUMMARY PATIENT: SHREE MESSER UNIT: [id number] ADM DATE: 08/29/18 AGE: 48 : 74 SEX: M ROOM/BED: D.2216 AUTHOR: ELIZABETH KAPOOR PHYSICIAN: REFERRING PHYSICIAN: AUBREE ODELL MD DATE OF SERVICE: 09/02/18 Discharge Plan Patient Name: SHREE MESSER Facility: [facility]:[place] : 1970 Planned Disposition: Home with Home Health Anticipated Discharge Date: Discharge Date: Expected LOS: Initial Reviewer: [email or web address] Initial Review Date: 08/29/2018 Generated: 09/02/18 12:47 pm Comments DCP- Discharge Planning Updated by [email or web address]: Tania Gupta on 09/02/18 10:[address] CALLED PATIENT TO INFORM HIM OF THE CHANGE BECAUSE OF INSURANCE. HE IS AGREEABLE TO [facility]. I GAVE HIM THE OFFICE NUMBER. DCP- Discharge Planning Updated by [email or web address]: Tania Gupta on 09/02/18 10:[address] RECEIVED A CALL FROM [facility] SAYING THAT THEY DO NOT ACCEPT PATIENT'S INSURANCE. REFERRAL SENT TO [facility] WHO DOES ACCEPT CIGNA. DCP- Discharge Planning Updated by [email or web address]: Tania Gupta on 09/02/18 8:[address] Patient Name: SHREE MESSER Admission Status: Elective Accout number: [id number] Admission Date: 08-29-2018 : 1970 Admission Diagnosis:CROHN'S DISEASE, UNSPECIFIED, WITH ABSCESS Attending: AUBREE ODELL Current LOS: 4 Anticipated DC Date: Planned Disposition: Home with Home Health Primary Insurance: CIGNA PPO Discharge Planning Comments: CM met with patient to assess discharge planning needs. Patient lives with his brother where he is independent with his care. His mother will be the one to drive him home today. He will need , SELIN with [facility]. Referral sent to [facility], I spoke with Annalisa. He stated his home is safe to return. He denies any DME. CM will continue to follow and assist with DC planning as needed Lead Programmer Analyst: Tania Gupta DCPIA - Discharge Planning Initial Assessment Updated by [email or web address]: Tania Gupta on 09/02/18 9:44 am * Is the patient Alert and Oriented? Yes * How many steps to enter\exit or inside your home? * PCP [facility] * [facility] * Preadmission Environment Home with Family * ADLs Independent * Equipment None * List name and contact numbers for known caregivers / representatives who currently or will assist patient after discharge: Britney Calix [phone] * Verbal permission to speak to the caregivers and representatives has been obtained from the patient. Yes * Community resources currently utilized None * Additional services required to return to the preadmission environment? Yes * Can the patient safely return to the preadmission environment? Yes * Has this patient been hospitalized within the prior 30 days at any hospital? No Last DP export: 09/02/18 10:41 Patient Name: SHREE MESSER Page 79994 at 1147 All edits/amendments must be made on the electronic document DICTATION DATE: 09/02/181146 FUEL OPERATOR: JAIRO 09/02/181146 RPT#: [id number] DC DATE: STATUS: ADM IN [facility] [address] [place] [address] END OF REPORT
[2018-08-29 15:00] LABS: BASOPHILS 0.1 % (0-2); EOSINOPHILS 0.1 % (0-7); HEMATOCRIT 26.4 % (42.0-54.0); HEMOGLOBIN 8.3 g/dL (13.5-17.5); IMMATURE GRANULOCYTES 0.3 % (0-5); LYMPHOCYTES 8.3 % (15-50); MCH 26.4 pg (26.0-34.0); MCHC 31.4 g/dL (31.0-37.0); MCV 84.1 fL (80.0-100.0); MEAN PLATELET VOLUME 8.6 fL (7.4-10.4); NEUTROPHILS 83.2 % (40-80); RBC 3.14 10x6/uL (4.20-6.10); RDW 14.7 % (11.5-14.5); WBC 13.2 10x3/uL (4.8-10.8)
[2018-08-29 15:03] LABS: PLATELET COUNT 303 10x3/uL (130-400)
[2018-08-29 15:19] LABS: ALBUMIN 2.3 g/dL (3.4-5.0); ALKALINE PHOSPHATASE 64 U/L (46-116); ALT (SGPT) 14 U/L (10-68); BILIRUBIN - TOTAL 0.22 mg/dL (0.2-1.3); CALC OSMOLALITY 275 mosm/kg (275-300); CALCIUM 9.1 mg/dL (8.5-10.1); CARBON DIOXIDE 29.6 mmol/L (21.0-32.0); CHLORIDE - SERUM 99 mmol/L (98-107); CREATININE - SERUM 0.9 mg/dL (0.6-1.3); GLUCOSE 98 mg/dL (74-106); POTASSIUM - SERUM 4.1 mmol/L (3.5-5.1); PROTEIN - SERUM 7.6 g/dL (6.4-8.2); SODIUM 139 mmol/L (136-145); UREA NITROGEN 7 mg/dL (7-18); eGFR NON AFRICAN AMERICAN > 90 mL/min (90-120)
[2018-08-29 15:50] VITALS: BP 116/76; BMI 21.7
[2018-08-29 21:17] VITALS: BP 148/87
[2018-08-30 02:47] VITALS: BP 121/76
[2018-08-30 05:01] VITALS: BP 132/80
[2018-08-30 05:17] LABS: BASOPHILS 0.2 % (0-2); EOSINOPHILS 0.9 % (0-7); HEMATOCRIT 26.1 % (42.0-54.0); HEMOGLOBIN 8.1 g/dL (13.5-17.5); IMMATURE GRANULOCYTES 0.3 % (0-5); LYMPHOCYTES 15.6 % (15-50); MCH 26.2 pg (26.0-34.0); MCV 84.5 fL (80.0-100.0); MEAN PLATELET VOLUME 9.2 fL (7.4-10.4); MONOCYTES 10.9 % (2-11); NEUTROPHILS 72.1 % (40-80); PLATELET COUNT 306 10x3/uL (130-400); RBC 3.09 10x6/uL (4.20-6.10); RDW 15.1 % (11.5-14.5)
[2018-08-30 05:23] LABS: WBC 6.6 10x3/uL (4.8-10.8)
[2018-08-30 05:25] LABS: CALC OSMOLALITY 275 mosm/kg (275-300); CALCIUM 8.8 mg/dL (8.5-10.1); CARBON DIOXIDE 29.1 mmol/L (21.0-32.0); CHLORIDE - SERUM 103 mmol/L (98-107); CREATININE - SERUM 0.7 mg/dL (0.6-1.3); GLUCOSE 91 mg/dL (74-106); SODIUM 140 mmol/L (136-145); UREA NITROGEN 4 mg/dL (7-18); eGFR NON AFRICAN AMERICAN > 90 mL/min (90-120)
[2018-08-30 07:55] VITALS: BP 101/60
[2018-08-30 11:26] VITALS: BP 128/80
[2018-08-30 13:13] VITALS: Ht 182.9 cm; Wt 72.6 kg
[2018-08-30 15:37] VITALS: BP 113/68
[2018-08-30 20:00] VITALS: BP 112/71
[2018-08-31] VITALS: BP 96/54
[2018-08-31 04:00] VITALS: BP 117/82
[2018-08-31 09:37] VITALS: BP 114/68
[2018-08-31 16:42] VITALS: BP 113/70
[2018-08-31 19:51] VITALS: BP 119/56
[2018-09-01] VITALS: BP 128/80
[2018-09-01 04:00] VITALS: BP 114/71
[2018-09-01 09:22] VITALS: BP 122/76
[2018-09-01 15:23] VITALS: BP 129/78
[2018-09-01 19:56] VITALS: BP 119/76
[2018-09-02] VITALS: BP 119/79
[2018-09-02 04:00] VITALS: BP 109/62
[2018-09-02 07:43] VITALS: BP 113/68
== END 2018-09-02 11:45 | disposition home health service (06) | DRG 863 ==
LOC: D.CT 09:12 → D.MS 12:44
PROVIDERS: Surgery
DX: T81.41XA Infection following a procedure, superficial incisional surgical site, initial encounter (principal); K50.90 Crohn's disease, unspecified, without complications

== ENCOUNTER → 2020-07-14 10:53 | Outpatient (CLI) | payer OTHER ==
[2018-08-30 13:13] VITALS: BMI 21.7
== END | disposition home or self-care (01) ==
LOC: D.CT 10:53
PROVIDERS: ATTEND Internal Medicine Gastroenterology
DX: K50.10 Crohn's disease of large intestine without complications (principal); R93.3 Abnormal findings on diagnostic imaging of other parts of digestive tract